=== PATIENT | male | born 1965 | race Two or more races ===

== ENCOUNTER 2020-05-10 15:08 | Emergency (ER) | payer OTHER ==
[~2020-05-10] VITALS: Ht 180.3 cm; Wt 78.5 kg
[2020-05-10 15:12] VITALS: BP 117/73
== END 2020-05-10 16:27 | disposition left against medical advice (07) ==
LOC: ER 15:08
DX: R06.02 Shortness of breath (principal); Z85.118 Personal history of other malignant neoplasm of bronchus and lung; Z85.05 Personal history of malignant neoplasm of liver
CPT/HCPCS: 93005

== ENCOUNTER 2020-05-13 13:01 | Emergency (ER) | payer OTHER ==
[~2020-05-13] VITALS: Ht 180.3 cm; Wt 78.5 kg
[2020-05-13 13:53] LABS: Basophils # (auto) 0.1 10 ^3/uL (0-0.2); Basophils % (auto) 0.8 % (0.0-2.0); Eosinophils # (auto) 0 10 ^3/uL (0-0.8); Eosinophils % (auto) 0.2 % (0.0-7.0); Lymphocytes # (auto) 0.6 10 ^3/uL (0.4-5.4)
[2020-05-13 13:55] LABS: Hematocrit 17.4 % (41.0-53.0); Lymphocytes % (auto) 6.9 % (10.0-50.0); Mean Corpuscular Hemoglobin 23.1 pg (28.0-32.0); Mean Corpuscular Hgb Conc. 32.3 g/dL (32.0-36.0); Mean Corpuscular Volume 71.4 fL (80.0-100.0); Monocytes # (auto) 0.7 10 ^3/uL (0-1.3); Monocytes % (auto) 7.8 % (0.0-12.0); Neutrophils # (auto) 7.1 10 ^3/uL (1.6-8.6); Neutrophils % (auto) 84.3 % (37.0-80.0); Nucleated Red Blood Cells % 0.2 %; Platelet Count (auto) 518 10^3/uL (140-450); Red Blood Cells 2.44 10^6/uL (4.5-5.90); Red Cell Distribution Width 18.4 % (11.8-14.3); White Blood Cell 8.4 10^3/uL (4.4-10.8)
[2020-05-13 13:59] LABS: Hemoglobin 5.6 g/dL (13.5-17.5)
[2020-05-13 14:14] LABS: Alanine Aminotransferase 74 U/L (16-61); Anion Gap 10 (5-15); Aspartate Aminotransferase 103 U/L (15-37); BUN/Creatinine Ratio 26.8; Blood Urea Nitrogen 15 mg/dL (7-18); Calcium 9.1 mg/dL (8.5-10.1); Carbon Dioxide 23 mmol/L (21-32); Chloride 102 mmol/L (98-107); GFR African American 197 mL/min; GFR Non-African American 163 mL/min; Glucose 122 mg/dL (74-106); Potassium 3.9 mmol/L (3.5-5.1); Sodium 135 mmol/L (136-145)
[2020-05-13 14:19] LABS: Alkaline Phosphatase 569 U/L (45-117); Bilirubin, Total 0.8 mg/dL (0.2-1.0); Total Protein 8.1 g/dL (6.4-8.2)
[2020-05-13 16:07] VITALS: BP 122/73
[2020-05-13 16:22] VITALS: BP 108/59
[2020-05-13 18:29] VITALS: BP 123/67
[2020-05-13 18:45] VITALS: BP 125/67
[2020-05-13 19:00] VITALS: BP 120/55
[2020-05-13 21:16] VITALS: BP 119/63
== END 2020-05-13 21:48 | disposition home or self-care (01) ==
LOC: ER 13:01
DX: D64.9 Anemia, unspecified (principal); D01.5 Carcinoma in situ of liver, gallbladder and bile ducts; I10 Essential (primary) hypertension
CPT/HCPCS: 36415; 36430; 71045; 80053; 84484; 85025; 86850; 86900; 86901; 86920; 93005; 99285; J7040; P9016